=== PATIENT | female | born 1930 | race Caucasian/White ===

== ENCOUNTER 2017-02-04 11:37 | Emergency (ER) | payer OTHER | END 2017-02-04 13:42 | disposition home or self-care (01) | LOC: ER 11:37 | DX: S80.01XA Contusion of right knee, initial encounter (principal); S50.812A Abrasion of left forearm, initial encounter; I10 Essential (primary) hypertension; Z90.49 Acquired absence of other specified parts of digestive tract; V49.40XA Driver injured in collision with unspecified motor vehicles in traffic accident, initial encounter | CPT/HCPCS: 90471 ==